=== PATIENT | female | born 1980 | race Two or more races ===

== ENCOUNTER → 2016-07-08 | Outpatient (REF) | payer OTHER, MEDICAID ==
[2016-07-08 19:23] LABS: BASO % 0.5 % (0.0-1.0); EOS % 0.6 % (0.0-3.0); LARGE UNSTAINED CELL # 0.1 K/mm3 (0.0-0.4); LARGE UNSTAINED CELL % 1.7 % (0.0-4.0); LYMPH # 2.1 K/mm3 (1.5-4.5); LYMPH % 25.8 % (24.0-44.0); MEAN CORPUSCULAR HEMOGLOBIN 29.7 pg (27.0-33.0); MEAN CORPUSCULAR HGB CONC 32.4 g/dl (32.0-36.5); MEAN CORPUSCULAR VOLUME 91.8 fl (80.0-96.0); MONO # 0.3 K/mm3 (0.0-0.8); NEUTROPHILS # 5.5 K/mm3 (1.8-7.7); NEUTROPHILS % 67.5 % (36.0-66.0); PLATELET COUNT, AUTOMATED 244 k/mm3 (150-450); RED CELL DISTRIBUTION WIDTH 12.5 % (11.5-14.5); WHITE BLOOD COUNT 8.2 K/mm3 (4.0-10.0)
[2016-07-08 19:29] LABS: ALBUMIN 4.4 GM/DL (3.2-5.2); ALBUMIN/GLOBULIN RATIO 1.33 (1.00-1.93); ALKALINE PHOSPHATASE 57 U/L (45-117); ALT/SGPT 21 U/L (12-78); ANION GAP 8 MEQ/L (8-16); AST/SGOT 13 U/L (15-37); BILIRUBIN,TOTAL 0.3 MG/DL (0.2-1.0); BLOOD UREA NITROGEN 10 MG/DL (7-18); CALCIUM LEVEL 9.6 MG/DL (8.5-10.1); CARBON DIOXIDE LEVEL 29 MEQ/L (21-32); CHLORIDE LEVEL 106 MEQ/L (98-107); CHOLESTEROL LEVEL 196 MG/DL (<200); CREATININE FOR GFR 0.75 MG/DL (0.55-1.02); GLOMERULAR FILTRATION RATE > 60.0 (>60); GLUCOSE, FASTING 87 MG/DL (70-105); POTASSIUM SERUM 4.3 MEQ/L (3.5-5.1); SODIUM LEVEL 143 MEQ/L (136-145); TOTAL PROTEIN 7.7 GM/DL (6.4-8.2); TRIGLYCERIDES LEVEL 59 MG/DL (<150)
== END ==
LOC: M SFHCADAM 15:27
PROVIDERS: ATTEND Family Medicine
DX: Z00.00 Encounter for general adult medical examination without abnormal findings (principal)

== ENCOUNTER 2016-07-29 17:57 | Emergency (ER) | payer MEDICAID, OTHER ==
[2016-07-29] MEDS ORDERED: ACETAMINOPHEN 325 MG TAB As Ordered ONE (18:47)
--- NOTE | 2016-07-29 18:53 | EDDOCDS ---
Nurse's Notes [facility] Name: Soo Pavon Age: 36 yrs Sex: Female : 1980 Arrival Date: 07/29/2016 Time: 17:57 Bed Triage 1 Private MD: Ray Nieves W Diagnosis: Acute serous otitis media, bilateral Presentation: 07/29 18:09 Presenting complaint: Patient states: right earache since last PM. Adult Sepsis [facility] Screening: The patient does not have new or worsening altered mentation. Patient's respiratory rate is less than 22. Systolic blood pressure is greater than 100. Patient has a qSOFA score of 0- Negative Sepsis Screen. Suicide/Homicide risk assessment- the patient denies having any suicidal and/or homicidal ideations and does not present with any other emotional, behavioral or mental health complaints. Status: Patient is not a equipment service associate or dependent. Transition of care: patient was not received from another setting of care. Pt has arrived by ambulance. I have assessed this patient and found them stable to be assessed through the triage process. . 18:09 Acuity: AGUILAR Level 5 [facility] 18:09 Method Of Arrival: Ambulance [facility] Triage Assessment: 18:11 General: Appears in no apparent distress, Behavior is appropriate for age, pleasant. [facility] Pain: Location: right ear Pain currently is 7 out of 10 on a pain scale. Pt Declines HIV testing. Neurological: Level of Consciousness is awake, alert, Oriented to person, place, time. EENT: Reports pain in right ear Pain is 7 out of 10 on a pain scale. Respiratory: Airway is patent Respiratory effort is even, unlabored, Respiratory pattern is regular, symmetrical. Derm: Skin is pink, warm & dry. 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 mirtazapine 30 mg Oral tab 1 tab nightly (Last dose: 07/28/2016) - PMHx: Depression; - PSHx: none; - Social history: Smoking status: Patient states former smoker of tobacco. No barriers to communication noted, The patient speaks fluent Italian. - Family history: Not pertinent. - : The pt / caregiver states he / she is not on anticoagulants. Home medication list is obtained from the patient. - Exposure Risk Screening:: None identified. Screenin:51 Screening information is obtained from the patient. Fall risk: No risks identified. srm Assistance ADL's: requires no assistance with activities of daily living. Abuse/DV Screen: The patient / caregiver reports he/she is: not in a situation that causes fear, pain or injury. Nutritional screening: No deficits noted. Advance Directives: There is no active DNR order. home support is adequate. Assessment: 18:51 General: Appears in no apparent distress, Behavior is appropriate for age, cooperative. srm EENT: Reports bilateral ear pain. Cardiovascular: No deficits noted. Respiratory: No deficits noted. Derm: No deficits noted. Vital Signs: 17:59 BP 139 / 95; Pulse 99; Resp 18 S; Temp 99.4(O); Pulse Ox 100% on R/A; Weight 63.5 kg gr2 (R); Height 5 ft. 7 in. (170.18 cm) (R); Pain 7/10; 17:59 Body Mass Index 21.93 (63.50 kg, 170.18 cm) gr2 Vitals: 17:59 Log In Time: July 29, 2016 at 17:59. gr2 ED Course: 17:58 Patient visited by Gigi Rachel. gr2 17:58 Ray Nieves is Private Physician. gr2 17:58 Patient moved to Waiting gr2 17:59 Patient visited by Giig Rachel. gr2 18:00 Patient moved to Pre RCE gr2 18:09 Triage Initiated [facility] 18:13 [facility]owals[facility] ef1 18:13 Daquan Fisher MD is Attending Physician. ef1 18:13 Patient moved to Triage 1 kp 18:14 Patient visited by Jeanette Kowalski PA-C. ef1 18:44 Ray Nieves is Referral Physician. ef1 18:44 [facility] Payment Agreement was scanned into [employer] and attached to record. kf3 18:51 The patient / caregiver is instructed regarding the plan of care and ED course. srm Accompanied by Family Member, Patient has correct armband on for positive identification. 18:51 No IV's were initiated during this patient's visit. No procedures done that require srm assistance. Administered Medications: 18:51 Drug: Acetaminophen 975 mg [acetaminophen 325 mg tablet (3 tabs)] Route: PO; srm Order Results: There are currently no results for this order. Outcome: 18:44 Discharge ordered by Provider. ef1 18:51 Discharge Assessment: Patient awake, alert and oriented x 3. No cognitive and/or srm functional deficits noted. Patient verbalized understanding of disposition instructions. patient administered narcotics - no. The following High Risk Discharge criteria are identified: None. Discharged to home ambulatory, with significant other. Condition: good Condition: stable. Discharge instructions given to patient, Instructed on discharge instructions, follow up and referral plans. medication usage, Demonstrated understanding of instructions, medications, Pt was receptive of discharge instructions/ teaching. Prescriptions given X 4. No special radiology studies were completed. Property :Personal belongings accompany Pt. 18:52 Patient left the ED. srm Signatures: Allison Morgan RN Elizabeth Jesus RN RN srm Fiddler, Luis, Reg Reg kf3 Jeanette Kowalski, PA-C PA-C ef1 Gigi Rachel gr2 MTDD
--- NOTE | 2016-07-29 18:53 | EDDOCDS ---
Physician Documentation [facility] Name: Soo Pavon Age: 36 yrs Sex: Female : 1980 Arrival Date: 07/29/2016 Time: 17:57 Bed Triage 1 Private MD: Ray Nieves W Disposition: 07/29/16 18:44 Discharged to Home/Self Care. Impression: Acute serous otitis media, bilateral. - Condition is Stable. - Discharge Instructions: Otitis Media, Adult, [id number]. - Prescriptions for Amoxicillin 875 mg Oral Tablet - take 1 tablet by ORAL route every 12 hours for 10 days; 20 tablet. Ibuprofen 800 mg Oral Tablet - take 1 tablet by ORAL route every 8 hours As needed take with food; 30 tablet. Claritin 10 mg Oral Tablet - take 1 tablet by ORAL route once daily As needed; 30 tablet. Mucinex 600 mg - take 1 tablet by ORAL route 2 times per day; 30 tablet. - Medication Reconciliation, Local Pharmacy Hours form. - Follow up: Ray Nieves; When: 1 - 2 days; Reason: Recheck today's complaints, Continuance of care. Follow up: Emergency Department; Reason: Worsening of conditions. - Problem is new. - Symptoms are unchanged. Historical: - Allergies: No known drug Allergies; - Home Meds: 1. mirtazapine 30 mg Oral tab 1 tab nightly (Last dose: 07/28/2016) - PMHx: Depression; - PSHx: none; - Social history: Smoking status: Patient states former smoker of tobacco. No barriers to communication noted, The patient speaks fluent Romansh. - Family history: Not pertinent. - : The pt / caregiver states he / she is not on anticoagulants. Home medication list is obtained from the patient. - Exposure Risk Screening:: None identified. 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 7 in. (170.18 cm) (R); Pain 7/10; 17:59 Body Mass Index 21.93 (63.50 kg, 170.18 cm) gr2 MDM: 18:34 Financial registration complete. kf3 18:44 Acetaminophen Tablet 975 mg PO once ordered. ef1 18:44 [facility] Payment Agreement was scanned into [employer] and attached to record. kf3 Administered Medications: 18:51 Drug: Acetaminophen 975 mg [acetaminophen 325 mg tablet (3 tabs)] Route: PO; srm Signatures: Allison Morgan RN RN kpj Elizabeth Morin RN RN srm Fiddler, Luis, Reg Reg kf3 Jeanette Kowalski PA-C PALorelei ef1 The chart was reviewed and I authenticate all verbal orders and agree with the evaluation and treatment provided.Attachments: 18:44 [facility] Payment Agreement kf3 MTDD
--- NOTE | 2016-07-31 19:53 | EDDOCDS ---
Physician Documentation [facility] Name: Soo Pavon Age: 36 yrs Sex: Female : 1980 Arrival Date: 07/29/2016 Time: 17:57 Bed Triage 1 Private MD: Ray Nieves W Disposition: 07/29/16 18:44 Discharged to Home/Self Care. Impression: Acute serous otitis media, bilateral. - Condition is Stable. - Discharge Instructions: Otitis Media, Adult, [id number]. - Prescriptions for Amoxicillin 875 mg Oral Tablet - take 1 tablet by ORAL route every 12 hours for 10 days; 20 tablet. Ibuprofen 800 mg Oral Tablet - take 1 tablet by ORAL route every 8 hours As needed take with food; 30 tablet. Claritin 10 mg Oral Tablet - take 1 tablet by ORAL route once daily As needed; 30 tablet. Mucinex 600 mg - take 1 tablet by ORAL route 2 times per day; 30 tablet. - Medication Reconciliation, Local Pharmacy Hours form. - Follow up: Ray Nieves; When: 1 - 2 days; Reason: Recheck today's complaints, Continuance of care. Follow up: Emergency Department; Reason: Worsening of conditions. - Problem is new. - Symptoms are unchanged. Historical: - Allergies: No known drug Allergies; - Home Meds: 1. mirtazapine 30 mg Oral tab 1 tab nightly (Last dose: 07/28/2016) - PMHx: Depression; - PSHx: none; - Social history: Smoking status: Patient states former smoker of tobacco. No barriers to communication noted, The patient speaks fluent Amharic. - Family history: Not pertinent. - : The pt / caregiver states he / she is not on anticoagulants. Home medication list is obtained from the patient. - Exposure Risk Screening:: None identified. 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 7 in. (170.18 cm) (R); Pain 7/10; 17:59 Body Mass Index 21.93 (63.50 kg, 170.18 cm) gr2 MDM: 18:34 Financial registration complete. kf3 18:44 Acetaminophen Tablet 975 mg PO once ordered. ef1 18:44 [facility] Payment Agreement was scanned into [employer] and attached to record. kf3 07/30 18:49 T-Sheet-- Draft Copy was scanned into [employer] and attached to record. klr Administered Medications: 07/29 18:51 Drug: Acetaminophen 975 mg [acetaminophen 325 mg tablet (3 tabs)] Route: PO; srm Signatures: Allison Morgan RN RN Elizabeth Liz RN RN srm Fiddler, Luis, Reg Reg kf3 Jeanette Kowalski, PA-C PA-C ef1 Yecenia Ford The chart was reviewed and I authenticate all verbal orders and agree with the evaluation and treatment provided.Attachments: 18:44 [facility] Payment Agreement kf3 07/30 18:49 T-Sheet-- Draft Copy klr Chart Complete MTDD
--- NOTE | 2016-07-31 19:53 | EDDOCDS ---
Physician Documentation [facility] Name: Soo Pavon Age: 36 yrs Sex: Female : 1980 Arrival Date: 07/29/2016 Time: 17:57 Bed Triage 1 Private MD: Ray Nieves W Disposition: 07/29/16 18:44 Discharged to Home/Self Care. Impression: Acute serous otitis media, bilateral. - Condition is Stable. - Discharge Instructions: Otitis Media, Adult, [id number]. - Prescriptions for Amoxicillin 875 mg Oral Tablet - take 1 tablet by ORAL route every 12 hours for 10 days; 20 tablet. Ibuprofen 800 mg Oral Tablet - take 1 tablet by ORAL route every 8 hours As needed take with food; 30 tablet. Claritin 10 mg Oral Tablet - take 1 tablet by ORAL route once daily As needed; 30 tablet. Mucinex 600 mg - take 1 tablet by ORAL route 2 times per day; 30 tablet. - Medication Reconciliation, Local Pharmacy Hours form. - Follow up: Ray Nieves; When: 1 - 2 days; Reason: Recheck today's complaints, Continuance of care. Follow up: Emergency Department; Reason: Worsening of conditions. - Problem is new. - Symptoms are unchanged. Historical: - Allergies: No known drug Allergies; - Home Meds: 1. mirtazapine 30 mg Oral tab 1 tab nightly (Last dose: 07/28/2016) - PMHx: Depression; - PSHx: none; - Social history: Smoking status: Patient states former smoker of tobacco. No barriers to communication noted, The patient speaks fluent Vietnamese. - Family history: Not pertinent. - : The pt / caregiver states he / she is not on anticoagulants. Home medication list is obtained from the patient. - Exposure Risk Screening:: None identified. 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 7 in. (170.18 cm) (R); Pain 7/10; 17:59 Body Mass Index 21.93 (63.50 kg, 170.18 cm) gr2 MDM: 18:34 Financial registration complete. kf3 18:44 Acetaminophen Tablet 975 mg PO once ordered. ef1 18:44 [facility] Payment Agreement was scanned into [employer] and attached to record. kf3 07/30 18:49 T-Sheet-- Draft Copy was scanned into [employer] and attached to record. klr Administered Medications: 07/29 18:51 Drug: Acetaminophen 975 mg [acetaminophen 325 mg tablet (3 tabs)] Route: PO; srm Signatures: Allison Morgan RN RN Elizabeth Liz RN RN srm Fiddler, Luis, Reg Reg kf3 Jeanette Kowalski, PA-C PA-C ef1 Yecenia Ford The chart was reviewed and I authenticate all verbal orders and agree with the evaluation and treatment provided.Attachments: 18:44 [facility] Payment Agreement kf3 07/30 18:49 T-Sheet-- Draft Copy klr Chart Complete MTDD
--- NOTE | 2016-07-31 19:53 | EDDOCDS ---
Nurse's Notes [facility] Name: Soo Pavon Age: 36 yrs Sex: Female : 1980 Arrival Date: 07/29/2016 Time: 17:57 Bed Triage 1 Private MD: Ray Nieves W Diagnosis: Acute serous otitis media, bilateral Presentation: 07/29 18:09 Presenting complaint: Patient states: right earache since last PM. Adult Sepsis [facility] Screening: The patient does not have new or worsening altered mentation. Patient's respiratory rate is less than 22. Systolic blood pressure is greater than 100. Patient has a qSOFA score of 0- Negative Sepsis Screen. Suicide/Homicide risk assessment- the patient denies having any suicidal and/or homicidal ideations and does not present with any other emotional, behavioral or mental health complaints. Status: Patient is not a clinical services assistant or dependent. Transition of care: patient was not received from another setting of care. Pt has arrived by ambulance. I have assessed this patient and found them stable to be assessed through the triage process. . 18:09 Acuity: AGUILAR Level 5 [facility] 18:09 Method Of Arrival: Ambulance [facility] Triage Assessment: 18:11 General: Appears in no apparent distress, Behavior is appropriate for age, pleasant. [facility] Pain: Location: right ear Pain currently is 7 out of 10 on a pain scale. Pt Declines HIV testing. Neurological: Level of Consciousness is awake, alert, Oriented to person, place, time. EENT: Reports pain in right ear Pain is 7 out of 10 on a pain scale. Respiratory: Airway is patent Respiratory effort is even, unlabored, Respiratory pattern is regular, symmetrical. Derm: Skin is pink, warm & dry. 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 mirtazapine 30 mg Oral tab 1 tab nightly (Last dose: 07/28/2016) - PMHx: Depression; - PSHx: none; - Social history: Smoking status: Patient states former smoker of tobacco. No barriers to communication noted, The patient speaks fluent Slovak. - Family history: Not pertinent. - : The pt / caregiver states he / she is not on anticoagulants. Home medication list is obtained from the patient. - Exposure Risk Screening:: None identified. Screenin:51 Screening information is obtained from the patient. Fall risk: No risks identified. srm Assistance ADL's: requires no assistance with activities of daily living. Abuse/DV Screen: The patient / caregiver reports he/she is: not in a situation that causes fear, pain or injury. Nutritional screening: No deficits noted. Advance Directives: There is no active DNR order. home support is adequate. Assessment: 18:51 General: Appears in no apparent distress, Behavior is appropriate for age, cooperative. srm EENT: Reports bilateral ear pain. Cardiovascular: No deficits noted. Respiratory: No deficits noted. Derm: No deficits noted. Vital Signs: 17:59 BP 139 / 95; Pulse 99; Resp 18 S; Temp 99.4(O); Pulse Ox 100% on R/A; Weight 63.5 kg gr2 (R); Height 5 ft. 7 in. (170.18 cm) (R); Pain 7/10; 17:59 Body Mass Index 21.93 (63.50 kg, 170.18 cm) gr2 Vitals: 17:59 Log In Time: July 29, 2016 at 17:59. gr2 ED Course: 17:58 Patient visited by Gigi Rachel. gr2 17:58 Ray Nieves is Private Physician. gr2 17:58 Patient moved to Waiting gr2 17:59 Patient visited by Gigi Rachel. gr2 18:00 Patient moved to Pre RCE gr2 18:09 Triage Initiated kp 18:13 Jeanette Kowalski PA-C [facility] ef1 18:13 Daquan Fisher MD is Attending Physician. ef1 18:13 Patient moved to Triage 1 kp 18:14 Patient visited by Jeanette Kowalski PA-C. ef1 18:44 Ray Nieves is Referral Physician. ef1 18:44 [facility] Payment Agreement was scanned into [employer] and attached to record. kf3 18:51 The patient / caregiver is instructed regarding the plan of care and ED course. srm Accompanied by Family Member, Patient has correct armband on for positive identification. 18:51 No IV's were initiated during this patient's visit. No procedures done that require srm assistance. 07/30 18:49 T-Sheet-- Draft Copy was scanned into [employer] and attached to record. klr Administered Medications: 07/29 18:51 Drug: Acetaminophen 975 mg [acetaminophen 325 mg tablet (3 tabs)] Route: PO; srm Order Results: There are currently no results for this order. Outcome: 18:44 Discharge ordered by Provider. ef1 18:51 Discharge Assessment: Patient awake, alert and oriented x 3. No cognitive and/or srm functional deficits noted. Patient verbalized understanding of disposition instructions. patient administered narcotics - no. The following High Risk Discharge criteria are identified: None. Discharged to home ambulatory, with significant other. Condition: good Condition: stable. Discharge instructions given to patient, Instructed on discharge instructions, follow up and referral plans. medication usage, Demonstrated understanding of instructions, medications, Pt was receptive of discharge instructions/ teaching. Prescriptions given X 4. No special radiology studies were completed. Property :Personal belongings accompany Pt. 18:52 Patient left the ED. srm Signatures: Allison Morgan RN RN kpj Michelson, Staci, RN RN srm Luis Lentz, Reg Reg kf3 Jeanette Kowalski PA-C PA-C ef1 Gigi Rachel gr2 Yecenia Ford Chart Complete MTDD
== END 2016-07-29 18:52 | disposition home or self-care (01) ==
LOC: M ED 17:57
DX: H66.93 Otitis media, unspecified, bilateral (principal); J02.9 Acute pharyngitis, unspecified; F33.9 Major depressive disorder, recurrent, unspecified; Z87.891 Personal history of nicotine dependence

== ENCOUNTER 2016-08-15 15:48 | Emergency (ER) | payer MEDICAID, OTHER ==
[~2016-08-15] VITALS: Ht 162.6 cm; Wt 63.5 kg
[2016-08-15] MEDS ORDERED: FLUO20CA8 PO (16:05)
[2016-08-15] MEDS ORDERED: MIRT30TA2 PO (16:05)
[2016-08-15] MEDS ORDERED: CLAR10CA3 PO (16:05)
[2016-08-15 17:38] LABS: BASO % 0.6 % (0.0-1.0); EOS # 0.1 K/mm3 (0.0-0.50); EOS % 2.4 % (0.0-3.0); LARGE UNSTAINED CELL # 0.1 K/mm3 (0.0-0.4); LARGE UNSTAINED CELL % 1.3 % (0.0-4.0); LYMPH # 1.7 K/mm3 (1.5-4.5); LYMPH % 30.5 % (24.0-44.0); MEAN CORPUSCULAR HEMOGLOBIN 30.3 pg (27.0-33.0); MEAN CORPUSCULAR HGB CONC 33.3 g/dl (32.0-36.5); MEAN CORPUSCULAR VOLUME 91.1 fl (80.0-96.0); MONO # 0.2 K/mm3 (0.0-0.8); MONO % 4.3 % (0.0-5.0); NEUTROPHILS # 3.3 K/mm3 (1.8-7.7); PLATELET COUNT, AUTOMATED 233 k/mm3 (150-450); RED CELL DISTRIBUTION WIDTH 12.8 % (11.5-14.5); WHITE BLOOD COUNT 5.4 K/mm3 (4.0-10.0)
[2016-08-15 17:59] LABS: CONTROL LINE HCG INT CTR LINE PRESENT
[2016-08-15 18:03] LABS: ANION GAP 9 MEQ/L (8-16); BLOOD UREA NITROGEN 10 MG/DL (7-18); CARBON DIOXIDE LEVEL 29 MEQ/L (21-32); CHLORIDE LEVEL 103 MEQ/L (98-107); CREATININE FOR GFR 0.55 MG/DL (0.55-1.02); GLOMERULAR FILTRATION RATE > 60.0 (>60); GLUCOSE, FASTING 111 MG/DL (70-105); POTASSIUM SERUM 3.6 MEQ/L (3.5-5.1); SODIUM LEVEL 141 MEQ/L (136-145)
[2016-08-15] MEDS ORDERED: ISOVUE-370 76% 100ML VIAL (Q9967) As Ordered ONE (18:04)
--- NOTE | 2016-08-15 18:50 | REPUSA ---
History: R/o PE. Comparison: No prior CTA of the chest available Technique: A CT-pulmonary angiogram was performed. A dose of intravenous contrast was administered. A xial images were displayed, as were sagittal and coronal reconstructions. A 3-D model was also render ed. Exam DLP: Findings: No CT evidence of pulmonary embolism is identified. There is no evidence of thoracic aortic aneurysm or dissection. No air space consolidation is identified in the lungs. There is no evidence of pulmonary edema. No pa thologically enlarged hilar or mediastinal lymph nodes are identified. No significant pleural or sania cardial fluid collection is seen. There is no evidence of pneumothorax. Mild degenerative changes are noted in the spine. The included portion of the upper abdomen does not show significant abnormality. Impression: No evidence of pulmonary embolism is identified.
[2016-08-15 19:59] VITALS: BP 119/83
--- NOTE | 2016-08-16 12:26 | ECGEPIP ---
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
== END 2016-08-15 20:00 | disposition home or self-care (01) ==
LOC: M ED 17:25
DX: J06.9 Acute upper respiratory infection, unspecified (principal); R04.2 Hemoptysis; Z79.899 Other long term (current) drug therapy
CPT/HCPCS: 71275; 80048; 84703; 85025; 87804; 93005; 93041; 94760; 99285; Q9967

== ENCOUNTER → 2016-10-06 | Outpatient (REF) | payer OTHER ==
[~2016-10-06] MED LIST: CLAR10CA3 PO; FLUO20CA8 PO; MIRT30TA2 PO
[2016-10-06 19:50] LABS: BASO % 0.5 % (0.0-1.0); EOS # 0.2 K/mm3 (0.0-0.50); EOS % 2.1 % (0.0-3.0); LARGE UNSTAINED CELL # 0.2 K/mm3 (0.0-0.4); LARGE UNSTAINED CELL % 2.1 % (0.0-4.0); LYMPH # 2.1 K/mm3 (1.5-4.5); LYMPH % 28.8 % (24.0-44.0); MEAN CORPUSCULAR HEMOGLOBIN 31.6 pg (27.0-33.0); MEAN CORPUSCULAR HGB CONC 32.8 g/dl (32.0-36.5); MEAN CORPUSCULAR VOLUME 96.5 fl (80.0-96.0); MONO # 0.4 K/mm3 (0.0-0.8); MONO % 5.7 % (0.0-5.0); NEUTROPHILS # 4.4 K/mm3 (1.8-7.7); NEUTROPHILS % 60.9 % (36.0-66.0); PLATELET COUNT, AUTOMATED 244 k/mm3 (150-450); RED CELL DISTRIBUTION WIDTH 12.7 % (11.5-14.5); WHITE BLOOD COUNT 7.2 K/mm3 (4.0-10.0)
[2016-10-06 20:22] LABS: ALBUMIN 3.6 GM/DL (3.2-5.2); ALKALINE PHOSPHATASE 56 U/L (45-117); ALT/SGPT 16 U/L (12-78); ANION GAP 6 MEQ/L (8-16); AST/SGOT 11 U/L (15-37); BILIRUBIN,TOTAL 0.2 MG/DL (0.2-1.0); BLOOD UREA NITROGEN 12 MG/DL (7-18); CARBON DIOXIDE LEVEL 31 MEQ/L (21-32); CHLORIDE LEVEL 103 MEQ/L (98-107); CREATININE FOR GFR 0.69 MG/DL (0.55-1.02); GLOMERULAR FILTRATION RATE > 60.0 (>60); GLUCOSE, FASTING 85 MG/DL (70-105); POTASSIUM SERUM 4.5 MEQ/L (3.5-5.1); SODIUM LEVEL 140 MEQ/L (136-145); TOTAL PROTEIN 7.6 GM/DL (6.4-8.2)
== END ==
LOC: M SFHCADAM 14:10
PROVIDERS: ATTEND Family Medicine
DX: R42 Dizziness and giddiness (principal)

== ENCOUNTER → 2016-11-24 | Outpatient (REF) | payer OTHER | LOC: M SFHCWAGY 09:57 | PROVIDERS: ATTEND Nurse Practitioner Women's Health | DX: Z12.4 Encounter for screening for malignant neoplasm of cervix (principal); R87.610 Atypical squamous cells of undetermined significance on cytologic smear of cervix (ASC-US) ==

== ENCOUNTER → 2016-11-26 | Outpatient (REF) | payer OTHER | LOC: M LAB REF 14:00 | PROVIDERS: ATTEND Family Medicine | DX: N30.00 Acute cystitis without hematuria (principal) ==

== ENCOUNTER 2017-04-18 03:02 | Emergency (ER) | payer OTHER ==
[~2017-04-18] VITALS: Ht 162.6 cm; Wt 65.9 kg
[2017-04-18] MEDS ORDERED: HYDR50TA70 (03:07)
[2017-04-18] MEDS ORDERED: KETOROLAC 60 MG/2 ML VIAL (J1885) IM ONE (03:45)
[2017-04-18 04:31] VITALS: BP 112/76
--- NOTE | 2017-04-18 07:58 | REP ---
Clinical: Chest pain . Comparison: 09/12/2006 . Findings: The mediastinum and cardiac silhouette are stable and within normal limits for portable technique. The lung logan are clear without acute consolidation, effusion, or pneumothorax. Skeletal structures are intact. Impression: No acute cardiopulmonary process appreciated. Signed by Kavin Hatfield MD 04/18/2017 07:49 A
== END 2017-04-18 04:32 | disposition home or self-care (01) ==
LOC: M ED 03:02
DX: S46.911A Strain of unspecified muscle, fascia and tendon at shoulder and upper arm level, right arm, initial encounter (principal); X58.XXXA Exposure to other specified factors, initial encounter; Y92.099 Unspecified place in other non-institutional residence as the place of occurrence of the external cause; Y93.89 Activity, other specified; Y99.9 Unspecified external cause status; F41.9 Anxiety disorder, unspecified; F32.9 Major depressive disorder, single episode, unspecified; F17.200 Nicotine dependence, unspecified, uncomplicated; Z79.899 Other long term (current) drug therapy
CPT/HCPCS: 71010; 96372; 99284; J1885

== ENCOUNTER → 2017-07-14 | Outpatient (CLI) | payer OTHER | LOC: M RAD 15:09 | DX: M25.511 Pain in right shoulder (principal) | CPT/HCPCS: 73030 ==

== ENCOUNTER 2017-07-26 14:31 | Outpatient (RCR) | payer OTHER | END 2017-08-03 | LOC: M PT 14:31 | DX: M25.511 Pain in right shoulder (principal) | CPT/HCPCS: 97010 ==

== ENCOUNTER 2017-08-09 11:14 | Outpatient (RCR) | payer OTHER | END 2017-09-03 | LOC: M PT 11:14 | DX: M25.511 Pain in right shoulder (principal) | CPT/HCPCS: 97010 ==

== ENCOUNTER 2017-08-09 12:38 | Emergency (ER) | payer OTHER | END 2017-08-09 15:08 | disposition home or self-care (01) | LOC: M ED 12:38 | DX: J02.8 Acute pharyngitis due to other specified organisms (principal); F41.9 Anxiety disorder, unspecified; F32.9 Major depressive disorder, single episode, unspecified; F17.200 Nicotine dependence, unspecified, uncomplicated; Z79.899 Other long term (current) drug therapy | CPT/HCPCS: 87880 ==

== ENCOUNTER 2017-09-08 11:39 | Outpatient (RCR) | payer OTHER | END 2017-10-03 | LOC: M PT 11:39 | DX: M25.511 Pain in right shoulder (principal) | CPT/HCPCS: 97010 ==

== ENCOUNTER 2017-10-25 00:41 | Emergency (ER) | payer OTHER ==
[2017-10-25] MEDS: NORCO 5/325MG TABLET (BULK FOR ED) PO (02:00)
== END 2017-10-25 02:33 | disposition home or self-care (01) ==
LOC: M ED 00:41
DX: S60.221A Contusion of right hand, initial encounter (principal); S80.01XA Contusion of right knee, initial encounter; S80.211A Abrasion, right knee, initial encounter; W18.39XA Other fall on same level, initial encounter; Y92.480 Sidewalk as the place of occurrence of the external cause; F41.9 Anxiety disorder, unspecified; F33.9 Major depressive disorder, recurrent, unspecified; Z79.899 Other long term (current) drug therapy; F17.210 Nicotine dependence, cigarettes, uncomplicated
CPT/HCPCS: 73130

== ENCOUNTER → 2018-03-05 | Outpatient (CLI) | payer OTHER ==
[2018-03-05 10:31] LABS: HCG, SERUM QUANTITATIVE < 1.0 MIU/ML
== END ==
LOC: M LAB 09:26
DX: N91.2 Amenorrhea, unspecified (principal)
CPT/HCPCS: 84702

== ENCOUNTER → 2018-08-09 | Outpatient (REF) | payer OTHER ==
[~2018-08-09] MED LIST changes: +ARTI99.0; +BENA25CA4 PO; +BUPR100T3; +FAMO20TA PO; +FLUTISP; +HYDR50TA70; +LORA-243; +MIRT-16 PO; -MIRT30TA2 PO; +MIRT30TA3; +NAPR-885 PO; +PRED20TA PO; +[UNRECOGNIZED DRUG - CODE]
[2018-08-09 14:45] LABS: CHLAMYDIA DNA AMPLIFICATION NEGATIVE (NEGATIVE); GC DNA AMPLIFICATION NEGATIVE (NEGATIVE)
== END ==
LOC: M SFHCADAM 09:41
PROVIDERS: ATTEND Family Medicine
DX: N89.8 Other specified noninflammatory disorders of vagina (principal)

== ENCOUNTER → 2018-11-15 | Outpatient (REF) ==
[~2018-11-15] MED LIST changes: -MIRT-16 PO; +MIRT1TAB16 PO; +RANI75TA13; -[UNRECOGNIZED DRUG - CODE]
--- NOTE | 2018-11-15 15:02 | REP ---
RIGHT SHOULDER, THREE VIEWS: HISTORY: Degenerative joint disease. There is no acute fracture or dislocation. The joint spaces are normal in appearance. IMPRESSION: There is no acute fracture or dislocation. Electronically Signed by Ray Ramires MD 11/15/2018 03:04 P
== END ==
LOC: M SMT 13:23
PROVIDERS: ATTEND Internal Medicine
DX: M51.36 Other intervertebral disc degeneration, lumbar region (principal)

== ENCOUNTER → 2019-01-02 | Outpatient (REF) | payer OTHER ==
[2019-01-04 14:08] LABS: HPV HYBRID CAPTURE II Negative (Negative)
== END ==
LOC: M LAB REF 16:54
PROVIDERS: ATTEND Advanced Practice Midwife
DX: Z12.4 Encounter for screening for malignant neoplasm of cervix (principal)

== ENCOUNTER 2019-06-22 07:12 | Emergency (ER) | payer MEDICAID, OTHER, SELFPAY ==
[~2019-06-22] VITALS: Ht 167.6 cm; Wt 74.5 kg
[~2019-06-22 07:12] MED LIST changes: -ARTI99.0; +FLUO20CA20 PO; -FLUO20CA8 PO; +POLYOPD; -RANI75TA13; +RANI75TA39
[2019-06-22] MEDS ORDERED: FLUO20CA22 (07:27)
[2019-06-22] MEDS ORDERED: TRAZ1TAB14 (07:27)
[2019-06-22 08:11] LABS: BASO % 0.6 % (0.0-1.0); EOS # 0.1 10^3/uL (0.0-0.5); EOS % 1.9 % (0.0-3.0); HEMATOCRIT 42.3 % (36.0-47.0); HEMOGLOBIN 13.8 g/dl (12.0-15.5); LYMPH # 2.5 10^3/uL (1.5-5.0); LYMPH % 39.2 % (24.0-44.0); MEAN CORPUSCULAR HEMOGLOBIN 29.5 pg (27.0-33.0); MEAN CORPUSCULAR HGB CONC 32.6 g/dl (32.0-36.5); MEAN CORPUSCULAR VOLUME 90.4 fl (80.0-96.0); MONO # 0.6 10^3/uL (0.0-0.8); MONO % 9.3 % (0.0-5.0); NEUTROPHILS # 3.2 10^3/uL (1.5-8.5); NEUTROPHILS % 48.7 % (36.0-66.0); PLATELET COUNT, AUTOMATED 267 10^3/uL (150-450); RED BLOOD COUNT 4.68 10^6/uL (4.00-5.40); WHITE BLOOD COUNT 6.5 10^3/uL (4.0-10.0)
--- NOTE | 2019-06-22 08:37 | REP ---
Portable chest x-ray: Single view. History: Chest pain. Comparison portable exam April 18, 2017. Findings: Monitoring electrodes are seen. The lungs are symmetrically aerated and clear. Heart is not enlarged. Pulmonary vasculature is not increased. No bony abnormalities seen. Impression: Negative portable chest x-ray. Electronically Signed by Robb Adame MD 06/22/2019 08:29 A
[2019-06-22 08:45] LABS: ALBUMIN 3.6 GM/DL (3.2-5.2); ALT/SGPT 20 U/L (12-78); BILIRUBIN,DIRECT < 0.1 MG/DL (0.0-0.2); BILIRUBIN,TOTAL 0.4 MG/DL (0.2-1.0); CK-MB VALUE MASS < 1.0 NG/ML (<3.6); CPK CREATINE PHOSPHOKINASE 94 U/L (26-192); FREE T4 0.96 NG/DL (0.76-1.46); MB/CK RELATIVE INDEX 1.06 (< OR =4); TOTAL PROTEIN 7.1 GM/DL (6.4-8.2); TROPONIN I < 0.02 NG/ML (< 0.10)
[2019-06-22] MEDS ORDERED: ISOVUE-370 76% 100ML VIAL (Q9967) As Ordered ONE (09:17)
--- NOTE | 2019-06-22 10:14 | REP ---
CT ANGIOGRAM CHEST: TECHNIQUE: Axial contrast enhanced images from the thoracic inlet to the upper abdomen using 100 mL Isovue 370 intravenous contrast material with multiplanar reformations. There is no CT evidence of pulmonary embolism. There is no thoracic aortic aneurysm or dissection. Heart is normal in size. There is no pleural or pericardial effusion. There is no mediastinal, hilar or chest wall lymphadenopathy. No acute infiltrate is seen in either lung. There are mild degenerative changes of the spine. IMPRESSION: No CT evidence of pulmonary embolism or other acute abnormality. Electronically Signed by Don Taveras MD 06/27/2019 09:33 A
[2019-06-22 13:32] LABS: CK-MB VALUE MASS < 1.0 NG/ML (<3.6); CPK CREATINE PHOSPHOKINASE 73 U/L (26-192); MB/CK RELATIVE INDEX 1.37 (< OR =4); TROPONIN I < 0.02 NG/ML (< 0.10)
[2019-06-22 14:06] VITALS: BP 122/71
--- NOTE | 2019-06-23 09:39 | ECGEPIP ---
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
== END 2019-06-22 14:11 | disposition home or self-care (01) ==
LOC: M ED 07:12
DX: R07.9 Chest pain, unspecified (principal); F17.200 Nicotine dependence, unspecified, uncomplicated; F32.9 Major depressive disorder, single episode, unspecified; F41.9 Anxiety disorder, unspecified; Z79.899 Other long term (current) drug therapy
CPT/HCPCS: 36415; 71045; 71275; 80047; 80076; 82550; 82553; 84439; 84443; 85025; 85379; 93005; 93041; 94760; 99285; Q9967

== ENCOUNTER → 2020-11-11 | Outpatient (REF) | payer MEDICAID, OTHER ==
[~2020-11-11] MED LIST changes: +FLUO20CA22; +TRAZ1TAB14
== END ==
LOC: M SFHCWAGY 13:36
PROVIDERS: ATTEND Nurse Practitioner Women's Health
DX: Z12.4 Encounter for screening for malignant neoplasm of cervix (principal)

== ENCOUNTER → 2020-11-14 | Outpatient (REF) | payer OTHER ==
[2020-11-14 13:04] LABS: BASO # 0.1 10^3/uL (0.0-0.2); BASO % 0.7 % (0.0-1.0); EOS # 0.1 10^3/uL (0.0-0.5); EOS % 1.5 % (0.0-3.0); HEMATOCRIT 42.2 % (36.0-47.0); LYMPH # 1.8 10^3/uL (1.5-5.0); LYMPH % 24.6 % (24.0-44.0); MEAN CORPUSCULAR HEMOGLOBIN 29.9 pg (27.0-33.0); MEAN CORPUSCULAR HGB CONC 33.2 g/dl (32.0-36.5); MONO # 0.6 10^3/uL (0.0-0.8); MONO % 7.4 % (2.0-8.0); NEUTROPHILS # 4.9 10^3/uL (1.5-8.5); NEUTROPHILS % 65.4 % (36.0-66.0); PLATELET COUNT, AUTOMATED 341 10^3/uL (150-450); RED BLOOD COUNT 4.69 10^6/uL (4.00-5.40); WHITE BLOOD COUNT 7.5 10^3/uL (4.0-10.0)
[2020-11-14 15:04] LABS: ALBUMIN 3.8 GM/DL (3.2-5.2); ALT/SGPT 24 U/L (12-78); BILIRUBIN,TOTAL 0.3 MG/DL (0.2-1.0); BLOOD UREA NITROGEN 6 MG/DL (7-18); CARBON DIOXIDE LEVEL 29 MEQ/L (21-32); CHLORIDE LEVEL 102 MEQ/L (98-107); CHOLESTEROL LEVEL 224 MG/DL (<200); CHOLESTEROL RISK RATIO 3.294 (<5); CREATININE FOR GFR 0.73 MG/DL (0.55-1.30); FOLATE 6.4 NG/ML; FREE T4 0.86 NG/DL (0.76-1.46); GLOMERULAR FILTRATION RATE > 60.0 (>60); GLUCOSE, FASTING 95 MG/DL (70-100); HDL CHOLESTEROL 68 MG/DL (>40); LDL CHOLESTEROL 130 MG/DL (<100); NON-HDL-C 156 MG/DL; POTASSIUM SERUM 4.6 MEQ/L (3.5-5.1); SODIUM LEVEL 136 MEQ/L (136-145); TOTAL PROTEIN 7.7 GM/DL (6.4-8.2); TRIGLYCERIDES LEVEL 132 MG/DL (<150); VITAMIN B12 LEVEL 314 PG/ML
[2020-11-14 15:27] LABS: HEMOGLOBIN A1c 5.4 %
== END ==
LOC: M SFHCPLAZ 12:01
PROVIDERS: ATTEND Physician Assistant
DX: R42 Dizziness and giddiness (principal); Z13.29 Encounter for screening for other suspected endocrine disorder; Z13.1 Encounter for screening for diabetes mellitus; Z13.220 Encounter for screening for lipoid disorders

== ENCOUNTER → 2023-08-15 | Outpatient (REF) | payer OTHER ==
[~2023-08-15] MED LIST changes: +ARTIDRO4; +BUPR-70; -BUPR100T3; +FLUO-96 PO; -FLUO20CA20 PO; +OSEL75CA PO; -POLYOPD
[2023-08-15 18:17] LABS: BASO % 0.8 % (0.0-1.0); EOS # 0.1 10^3/uL (0.0-0.5); EOS % 2.1 % (0.0-3.0); HEMATOCRIT 39.8 % (36.0-47.0); HEMOGLOBIN 13.2 g/dl (12.0-15.5); LYMPH # 2.3 10^3/uL (1.5-5.0); LYMPH % 47.6 % (24.0-44.0); MEAN CORPUSCULAR HEMOGLOBIN 30.3 pg (27.0-33.0); MEAN CORPUSCULAR HGB CONC 33.2 g/dl (32.0-36.5); MEAN CORPUSCULAR VOLUME 91.5 fl (80.0-96.0); MONO # 0.4 10^3/uL (0.0-0.8); MONO % 7.6 % (2.0-8.0); NEUTROPHILS % 41.7 % (36.0-66.0); PLATELET COUNT, AUTOMATED 275 10^3/uL (150-450); RED BLOOD COUNT 4.35 10^6/uL (4.00-5.40); WHITE BLOOD COUNT 4.7 10^3/uL (4.0-10.0)
[2023-08-15 18:31] LABS: HEMOGLOBIN A1c 5.2 % (4.0-6.0)
[2023-08-15 18:51] LABS: ALBUMIN 3.7 G/DL (3.2-5.2); ALKALINE PHOSPHATASE 67 U/L (46-116); ALT/SGPT 15 U/L (7.0-40); AST/SGOT 9 U/L (<34); BILIRUBIN,TOTAL 0.3 MG/DL (0.3-1.2); BLOOD UREA NITROGEN 11 MG/DL (9-23); CALCIUM LEVEL 8.8 MG/DL (8.5-10.1); CARBON DIOXIDE LEVEL 26 MMOL/L (20-31); CHLORIDE LEVEL 105 MMOL/L (98-107); CHOLESTEROL LEVEL 177 MG/DL (<200); CHOLESTEROL RISK RATIO 2.79 (<5); CREATININE FOR GFR 0.58 MG/DL (0.55-1.30); GLOMERULAR FILTRATION RATE > 60.0 (>58); GLUCOSE, FASTING 91 MG/DL (60-100); HDL CHOLESTEROL 63.4 MG/DL (>40); NON-HDL-C 113.6 MG/DL; POTASSIUM SERUM 4.1 MMOL/L (3.5-5.1); SODIUM LEVEL 137 MMOL/L (136-145); TOTAL PROTEIN 6.9 G/DL (5.7-8.2); TRIGLYCERIDES LEVEL 78 MG/DL (<150)
[2023-08-15 18:53] LABS: THYROID STIMULATING HORMONE 1.733 uIU/ML (0.55-4.78); TOTAL 25(OH) VITAMIN D 9.8 NG/ML (20.0-100.0)
== END ==
LOC: M LAB REF 17:49
PROVIDERS: ATTEND Nurse Practitioner Family
DX: E66.3 Overweight (principal); E55.9 Vitamin D deficiency, unspecified; R53.83 Other fatigue; Z11.9 Encounter for screening for infectious and parasitic diseases, unspecified

== ENCOUNTER → 2025-02-19 | Outpatient (REF) | payer OTHER ==
[~2025-02-19] MED LIST changes: +FLUO-365; -FLUO20CA22
[2025-02-19 17:24] LABS: BASO # 0.1 10^3/uL (0.0-0.2); BASO % 0.7 % (0.0-1.0); EOS # 0.1 10^3/uL (0.0-0.5); EOS % 1.8 % (0.0-3.0); LYMPH # 2.1 10^3/uL (1.5-5.0); LYMPH % 27.7 % (24.0-44.0); MONO # 0.6 10^3/uL (0.0-0.8); MONO % 8.0 % (2.0-8.0); NEUTROPHILS # 4.7 10^3/uL (1.5-8.5); NEUTROPHILS % 61.5 % (36.0-66.0); PLATELET COUNT, AUTOMATED 265 10^3/uL (150-450)
[2025-02-19 17:39] LABS: CALCIUM LEVEL 9.3 MG/DL (8.5-10.1); CARBON DIOXIDE LEVEL 26 MMOL/L (20-31); CHLORIDE LEVEL 101 MMOL/L (98-107); CHOLESTEROL LEVEL 257 MG/DL (<200); CHOLESTEROL RISK RATIO 3.37 (<5); CREATININE FOR GFR 0.64 MG/DL (0.55-1.30); ESTIMATED AVERAGE GLUCOSE 111.0 MG/DL (60-110); GLOMERULAR FILTRATION RATE > 90.0 (>58); LDL CHOLESTEROL 131.1 MG/DL (<100); NON-HDL-C 180.9 MG/DL; POTASSIUM SERUM 4.3 MMOL/L (3.5-5.1); SODIUM LEVEL 138 MMOL/L (136-145); TRIGLYCERIDES LEVEL 249 MG/DL (<150)
== END ==
LOC: M LAB REF 16:28
PROVIDERS: ATTEND Nurse Practitioner Family
DX: E66.811 Obesity, class 1 (principal)

== ENCOUNTER → 2025-02-25 | Outpatient (REF) | payer OTHER | LOC: M LAB REF 12:29 | PROVIDERS: ATTEND Nurse Practitioner Family | DX: J02.9 Acute pharyngitis, unspecified (principal) ==